=== PATIENT | female | born 1960 | race Caucasian/White ===

== ENCOUNTER 2016-05-06 09:54 | Inpatient (IN) ==
--- NOTE | 2016-05-06 08:33 | Discharge Summary ---
<Mallory Longoria - Last Filed: 05/06/16 12:35> - Discharge Medications Prescriptions: Ibuprofen [Motrin] 800 mg PO Q8HR #30 tablet Home Medications: Albuterol Sulfate [Albuterol Inhaler] 2 puff IH Q4HR PRN 05/06/16 [History] Aspirin Enteric Coated [Aspirin EC] 81 mg PO DAILY 05/06/16 [History] Aspirin Enteric Coated [Aspirin EC] 325 mg PO DAILY #21 tablet. 05/06/16 [Rx] Atenolol [Tenormin] 25 mg PO DAILY 05/06/16 [History] Budesonide/Formoterol 160/4.5 [Symbicort 160/4.5] 2 puff IH BIDR 05/06/16 [ History] Cholecalciferol (D-3) [Vitamin D] 1,000 unit PO DAILY 05/06/16 [History] Citalopram [CeleXA] 20 mg PO DAILY 05/06/16 [History] Furosemide [Lasix] 20 mg PO DAILY 05/06/16 [History] HYDROcodone/Acet 5/325 mg [[place] 5-325 mg] 1 tab PO Q8H PRN 05/06/16 [History] Lisinopril [Zestril] 20 mg PO DAILY 05/06/16 [History] Omeprazole [PriLOSEC] 40 mg PO DAILY 05/06/16 [History] OxyCODONE Immed Rel [Roxicodone 5 MG] 5 - 10 mg PO Q6HR PRN #40 tablet 05/06/16 [Rx] Psyllium Husk [Daily Fiber] 0.52 gm PO DAILY 05/06/16 [History] Ibuprofen [Motrin] 800 mg PO Q8HR #30 tablet 05/08/16 [Rx] Allergies/Adverse Reactions: Allergies No Known Allergies Allergy (Verified 05/06/16 13:28) Primary care physician: Lluvia Silver CNP - Patient Status Disposition: Home, Self-Care Condition: Good - Discharge Instructions Follow Up With: Lluvia Silver CNP [Primary Care Provider] - 05/12/16 1:00 pm Additional Instructions: Discharge Instructions: Total Knee Replacement Please call [facility] ([phone]), your Primary Care Physician, or report to the Emergency Room if you have any of the following symptoms: Nausea, vomiting, fever greater that 101.5, swelling, chest pain, shortness of breath, increased pain/redness/drainage/odor for your incision site, numbness/ tingling, or any other concerning symptoms. ACTIVITY:Weight-bearing as tolerated. You may progress off support (cruthches or walker) as tolerated. MEDICATIONS: Upon discharge resume your home medications. Take all the medications as prescribed. Take a stool softener if taking narcotic pain medications. Stool softeners are only effective if you drink enough fluids. Drink 6-8 glass of water or fluids a day, unless this is not allowed for another health problem. Despite using stool softeners, if you haven't had a bowel movement in 3 days, please switch to a gentle laxative. Gentle laxatives are sold over the counter. You should have a bowel movement within 24 hours, if not call the office. You will be discharged from the hospital with a prescription for pain medication. You are encouraged to decrease the use of narcotic pain medication as tolerated. Should you require a refill, please call the office. [facility] prescribes narcotic pain medication for only 4-6 weeks after surgery. If you require pain medication beyond this time periord, you may be referred to your Primary Care Physician or to the Pain Clinic for further evaluation. Plan ahead for refills on pain medication as many narcotics either need to be picked up at the office or mailed. It is best to call 48-72 hours in advance of needing a prescription refill so you don't run out of medication. To help control the post-operative pain, you may take NSAIDs (Aleve,Advil, Motrin, ibuprofen, naprosyn) or Tylenol as prescribed on the bottle in addition to the pain medication. ANTICOAGULATION (blood thinners): Continue your Aspirin, Lovenox or Coumadin as prescribed to help prevent a blood clot in the leg or in the lungs. As long as your incision remains dry and you tolerate the NSAIDs (Aleve, Advil, Motrin, ibuprofen, naprosyn), it is OK to use the NSAIDS while you are taking your anticoagulation medication. Should your incision start to drain, stop the NSAID and contact our office. Common symptoms of blood clot in the legs include: localized pain, swelling, calf tenderness, redness or discoloration of the skin. Blood clot in the lung symptoms include: shortness of breath, rapid pulse, sweating, and chest pain that worsens with deep breathing, coughing up blood, lightheadedness, feelings of anxiety. If you experience any of these symptoms notify your physician immediately, go to the emergency room, or if having trouble breathing, call 911. WOUND CARE: Leave the dressing on for 7 days. You may change the dressing if it becomes saturated greater than 50%. You can shower but not a tub bath or submerge your incision in water. Wash your hands with antibacterial soap, rinse and dry prior to any wound care. If you have keith the visiting nurse or rehab facility can remove the stapes 10-14 days after surgery [address] steri- strips across the wound. Leave the steri-strips in place until they fall off on their won. You may let water from the shower run on top of the steri-stirips. If you do not have a visiting nurse or rehab facility, you will need to return to the office at 10-14 days for the keith to be removed. FOLLOW-UP: Please follow up with your surgeon in the orthopedic clinic in 4 weeks from the day of surgery. If you have keith that need to be removed, you will need to come back to the office in 10-14 days from the day of surgery. - Hospital Course Hospital course: Ms. Duran is a 55 year old female - Time Spent with Patient Total time spent providing and/or coordinating discharge services: <Grant Kumar - Last Filed: 05/08/16 06:25> Date of Encounter: 05/08/16 Time of Encounter: 06:24 - Discharge Diagnosis (1) Arthritis of knee, right Priority: Primary Status: Acute (2) Hypertension Priority: Secondary Status: Chronic Qualifiers: Hypertension type: unspecified secondary hypertension Qualified Code(s): I15.9 - Secondary hypertension, unspecified; I15 - Secondary hypertension (3) COPD (chronic obstructive pulmonary disease) Priority: Secondary Status: Chronic Qualifiers: COPD type: unspecified COPD Qualified Code(s): J44.9 - Chronic obstructive pulmonary disease, unspecified (4) Obesity (BMI 35.0-39.9 without comorbidity) Priority: Secondary Status: Chronic Primary care physician: Lluvia Nadeem, FEED BLENDER - Patient Status Functional capacity at discharge: uses cane/walker Overall status at discharge: patient is progressing back to baseline - Hospital Course Hospital course: Ms. Duran is a 55 year old female The patient had an uneventful postoperative course. They received antibiotics and physical therapy and were discharged in stable condition. There will follow -up in the office in 2 weeks. Aspirin DVT prophylaxis - Time Spent with Patient Total time spent providing and/or coordinating discharge services:
[2016-05-06] MEDS ORDERED: CeFAZolin Pre 2,000 MG/100 ML 2,000 MG/100 ML BAG IVPB ONE (10:43)
[2016-05-06] MEDS ORDERED: Albuterol 2.5 MG/3 ML NEBULIZER IH ONE (10:43)
--- NOTE | 2016-05-06 11:04 | History & Physical Report ---
Date of Encounter: 05/06/16 Time of Encounter: 11:03 24 Hour HP Update - Instructions Instructions: If the History and Physical is less than 30 days old and was completed prior to A.M. admission and or procedure and has NOT been updated on calendar day of procedure please complete this update prior to performing procedure. - Update Patient reports changes in Medical Condition: No Changes in assessment/condition: No Changes in Medication: No Preop tests/diagnostics Reviewed: Yes Surgery Remains Indicated: Yes Consent for Planned Operative Procedure(s) Verified: Yes - Pre-Operative Checklist Preoperative Checklist Indicated: No Prophylactic Antibiotic Ordered: Yes Is VTE Prophylaxis Indicated?: Yes
[2016-05-06] MEDS ORDERED: Ringers Solution, Lactated 1,000 ML IVC SCH (11:15)
[2016-05-06] MEDS ORDERED: Famotidine 20 MG/2 ML VIAL IVP ONE (12:26)
--- NOTE | 2016-05-06 12:29 | Anesthesia Evaluation PreOp ---
Date of Encounter: 05/06/16 Time of Encounter: 12:30 - Past History Planned Operation: Rt TKR Cardiac History: HTN Pulmonary History: COPD PRESS TENDER STAR SIGNAL History: Denies Any Significant HX Other Medical History: GERD Anesthesia History: No Prior Anesthetic Complications : No Alcohol Use: none Drug use: none Medications and Allergies DiphenhydraMINE [Benadryl] 25 mg PO Q6HR PRN #20 capsule 06/07/15 [Rx] MethylPREDNISolone [Medrol] 4 mg PO TAPER #21 tablet 06/07/15 [Rx] HYDROcodone/Acet 5/325 mg [[place] 5-325 mg] 1 tab PO Q6HR PRN #15 tablet [Rx] Allergies No Known Allergies Allergy (Verified 03/25/16 09:35) - Meds/Allergy Pre-op Review Medications Reviewed: Yes Allergies Reviewed: Yes Beta Blockers on Current Med List: Yes (Took Atenolol today 0800) Anesthesia Results - Labs Laboratory Tests 05/05/16 05/05/16 11:20 11:20 Hgb 13.7 Hct 40.9 Plt Count 247 Sodium 138 Potassium 4.6 H BUN 17 Creatinine 0.85 Anesthesia Exam O2 Sat Height 1.6 m Height 1.6 m Weight 97.976 kg Weight 97.976 kg O2 Sat by Pulse Oximetry 96 Vital Signs Temp Pulse Resp BP Pulse Ox 97.8 F 66 18 148/78 96 05/06/16 10:40 05/06/16 10:40 05/06/16 10:40 05/06/16 10:40 05/06/16 10:40 Height: 5'3 Weight: 211 lbs NPO (# of Hours): MN Pain Scale: 0 - HEENT Pupil (Motor): Pupils equal, EOMI Mallampati: III Denture Type: Upper: Complete Oral Opening: Less than or equal to 3 - PRESS TENDER STAR SIGNAL LOC: Oriented PRESS TENDER STAR SIGNAL Motor: Normal RUE, Normal LUE, Normal RLE, Normal LLE, Normal Face PRESS TENDER STAR SIGNAL Sensory: Normal: RUE, LUE, RLE, LLE, Face - Cardiac Rhythm: Regular Murmur: None JVD: No Carotid Bruit: No - Pulmonary Breath Sounds: bilateral Clear Respiratory Effort: Symmetrical Anesthesia Assess/Plan ASA Score: 3 (COPD Htn Gerd Obese) Modified Denver Scale for Level of Consciousness: Cooperative, oriented, and tranquil Anesthetic Plan: General, Regional Monitoring Plan: Standard Monitors Recovery Plan: PACU (Discussed GA and RA, agrees to proceed)
[2016-05-06] MEDS ORDERED: *HR* FentaNYL (PF) 100 MCG/2 ML VIAL ONE (13:10)
[2016-05-06] MEDS ORDERED: *HR* Propofol 200 MG/20 ML VIAL IVP ONE (13:10)
[2016-05-06] MEDS ORDERED: *HR* Midazolam HCl 2 MG/2 ML VIAL ONE ×3 (13:10→14:34)
[2016-05-06] MEDS ORDERED: Tetracaine/PF 20 MG/2 ML AMPUL SPINA ONE (14:04)
[2016-05-06] MEDS ORDERED: ROPIVACAINE HCL/PF 0.5% 30 ML VIAL ONE (14:04)
[2016-05-06] MEDS ORDERED: Ondansetron 4 MG/2 ML VIAL ONE (14:53)
[2016-05-06] MEDS ORDERED: Dexamethasone 4 MG/ML VIAL ONE (14:53)
[2016-05-06] MEDS ORDERED: Ondansetron 4 MG/2 ML VIAL IVP PRN ×2 (14:54→17:10)
--- NOTE | 2016-05-06 15:03 | Anesthesia Procedures ---
Date of Encounter: 05/06/16 Time of Encounter: 12:00 Procedures: Anesthesia - Nerve Block Procedure Date: 05/06/16 Time: 14:25 Pre-op Diagnosis: Rt Knee OA Surgical Procedure: Rt Knee OA Checklist: Correct Patient Identifier Correct side: Right Blood Thinner: No Monitor Applied: EKG, BP, Pulse Oximetry Supplemental Oxygen via Nasal Cannula (L/min): 2 Sedation: Versed (mg): 6 Sedation: Fentanyl (mcg): 100 Indication: Post Op Analgesia Block Type: Femoral, Other (IPACK) Catheter placed: No Sterile Technique: Yes Ultrasound used: Yes Anatomy identified: Yes Visual spread of Local: Yes Neuro Stimulation: Yes Nerve Stimulator Range: >0.4 - 0.6 mA Blood on Needle Aspiration: No Smooth Injection of Local: Yes Pain with Injection of Local: No Prep: Chlorhexadine Local: 0.25% Bupivicaine w/Clonidine 20 mcg/cc, Tetracaine (40), Ropivacaine ( 0.5%) Volume (cc): 30 Number of Attempts: 1 Complications: None/effective block Vitals: Vital Signs/O2 Sat/Glucose, Most Current Pulse Resp BP Pulse Ox 05/06/16 14:06 71 16 160/87 97
--- NOTE | 2016-05-06 15:20 | Orthopedic Operative Note ---
Date of procedure: 05/06/16 Pre-op diagnosis: Right knee arthritis Post-op diagnosis: same Procedure: Procedure: Right Total knee replacement Estimated blood loss: 200 cc Hardware: Arthrex Femur: 4 Tibia: 3 PS insert: 16 Patella: 34 Exam Under anesthesia: Full flexion full extension no instability Procedural Notes: Grade 4 arthritic changes medial compartment patellofemoral joint. Operative procedure: The patient was brought to the operating room and placed on the operating room table. After general anesthesia was administered the operative knee was examined. Findings were noted in the exam under anesthesia. The operative extremity was prepped and draped in sterile surgical fashion. The patient received IV antibiotics prior to skin incision. A standard midline incision was made centered over the patella. The incision was made through the skin and subcutaneous tissue. A medial parapatellar tendon approach was performed. Care was taken to preserve tissue along the medial aspect of the patella. And to protect the patella tendon. The deep MCL was released off the medial tibia. The infra patella fat pad was excised. Knee was brought into flexion. It noted to have grade 4 arthritic changes medial compartment patellofemoral joint. The entry hole was made for the intramedullary femoral guide. The guide was seated in 6 degrees of valgus. Anterior cut was made followed by the distal cut. The ACL the PCL the medial and the lateral menisci were excised. The tibia was subluxed forward. The entry hole was made for the intramedullary tibial guide. Guide was seated to resect 2 mm off the more abnormal side. The knee was brought into flexion the distal femur was sized to a 4. The femoral guide was seated, the anterior cut was made followed by the posterior condylar cut, followed by the chamfer cuts. The finishing guide was seated the box cut was made and the lug holes were drilled. The tibia was sized to a 3, the tibial tray was seated and prepared with the large drill followed by the fin cutter. Trial reduction revealed full extension no varus valgus instability with the appropriate 16 PS Thalia. The patella was everted and cut was made at the level of the insertion of the quadriceps and patella tendon. The patella was sized 34 the guide was seated and the lug holes are drilled. Trial reduction revealed excellent patella tracking. All trial components were removed all bony surfaces were irrigated. The tibia was cemented first followed by the femur. The 16 PS Thalia was seated and the knee was brought into full extension. The patella was cemented and held in place with the patellar holding clamp. After the cement had hardened, the knee sat for 2 minutes with a Betadine saline solution. The knee was then irrigated out with 2 L of pulse irrigation. The extensor mechanism was closed with #2 FiberWire suture and #2 PDS suture. The subcutaneous tissue was then irrigated and closed deep with #1 PDS suture superficially with 0 PDS suture and skin was closed with skin keith. The patient was then placed in a sterile dressing and a postoperative brace extubated and transferred to recovery room in stable condition. Anesthesia: NIKITA Surgeon: Grant Kumar Developer Designer: Mallory Longoria Condition: stable Disposition: PACU
[2016-05-06 16:10] LABS: Hematocrit 35.6 % (35.3-44.9)
[2016-05-06] MEDS: *HR* HYDROmorphone (PF) 1 MG/ML SYRINGE IVP PRN ×4 (16:17→21:02)
[2016-05-06 16:25] LABS: Hemoglobin 12.1 g/dL (11.5-15.4)
[2016-05-06] MEDS ORDERED: Sennosides 8.6 MG TABLET PO PRN (17:10)
[2016-05-06] MEDS ORDERED: Naloxone 0.4 MG/ML INJ IVP PRN (17:10)
[2016-05-06] MEDS ORDERED: MOM Conc 10 ML UD.LIQ PO PRN (17:10)
[2016-05-06] MEDS ORDERED: *HR* OxyCODONE Immed Rel 5 MG TABLET PO PRN (17:10)
[2016-05-06] MEDS ORDERED: Acetaminophen 325 MG TABLET PO PRN (17:10)
[2016-05-06] MEDS ORDERED: Temazepam 15 MG CAPSULE PO PRN (17:10)
[2016-05-06] MEDS ORDERED: *HR* Enoxaparin 30 MG/0.3 ML SYRINGE SQ SCH (18:00)
--- NOTE | 2016-05-06 18:05 | Anesthesia Evaluation Post Op ---
Date of Encounter: 05/06/16 Time of Encounter: 18:00 - Vital Signs Vital Signs: Vital Signs/O2 Sat/Glucose, Most Current Temp Pulse Resp BP Pulse Ox 05/06/16 17:51 99 05/06/16 16:41 98.3 F 61 16 142/78 96 05/06/16 16:31 69 14 140/68 96 05/06/16 16:21 98.3 F 67 16 135/65 99 05/06/16 16:11 76 14 132/66 100 05/06/16 16:01 71 14 136/75 99 05/06/16 15:51 99.5 F 68 16 138/88 99 05/06/16 14:06 71 16 160/87 97 - Lungs Lungs: Clear Ascult./Percussion - Airway Airway: Non-obstructed - Cardiovascular Regular Rate - Mental Status Mental Status: Alert & Oriented, Answers Appropriately - Pain Pain Scale: 2 - Nausea Vomiting Nausea Vomiting: Not Present - Hydration Hydration: Ice chips - Discharge PostOp Status: Transfer Patient to floor
[2016-05-06] MEDS: *HR* OxyCODONE Immed Rel 5 MG TABLET PO PRN ×2 (18:41→23:47)
[2016-05-06] MEDS: ceFAZolin 2,000 MG in D5% in Water 100 ML IVPB SCH ×2 (18:41→23:47)
[2016-05-06] MEDS: *HR* Enoxaparin 30 MG/0.3 ML SYRINGE SQ SCH (18:42)
[2016-05-07] MEDS: *HR* HYDROmorphone (PF) 1 MG/ML SYRINGE IVP PRN ×4 (03:04→17:47)
[2016-05-07] MEDS: *HR* Enoxaparin 30 MG/0.3 ML SYRINGE SQ SCH ×2 (05:26→17:47)
[2016-05-07 05:28] LABS: Hematocrit 34.2 % (35.3-44.9); Hemoglobin 11.3 g/dL (11.5-15.4)
[2016-05-07 05:40] LABS: BUN/Creatinine Ratio 16 (6-26); Blood Urea Nitrogen 12 mg/dL (7-20); Calcium 8.7 mg/dL (8.6-10.8); Carbon Dioxide 25 mEq/L (19-29); Chloride 105 mEq/L (98-109); Glucose 113 mg/dL (70-99); Osmolality,Calculated 287 (280-300); Potassium 4.8 mEq/L (3.5-4.5); Sodium 138 mEq/L (136-145); eGFR For African Americans > 60 (> 60); eGFR For Non-African Americans > 60 (> 60)
--- NOTE | 2016-05-07 06:29 | Orthopedics Progress Note ---
Date of Encounter: 05/07/16 Time of Encounter: 06:28 - Assessment and Plan (1) Arthritis of knee, right Current Visit: Yes Status: Acute (2) Hypertension Current Visit: Yes Status: Chronic Qualifiers: Hypertension type: unspecified secondary hypertension Qualified Code(s): I15.9 - Secondary hypertension, unspecified; I15 - Secondary hypertension (3) COPD (chronic obstructive pulmonary disease) Current Visit: Yes Status: Chronic Qualifiers: COPD type: unspecified COPD Qualified Code(s): J44.9 - Chronic obstructive pulmonary disease, unspecified (4) Obesity (BMI 35.0-39.9 without comorbidity) Current Visit: Yes Status: Acute Subjective Interval history: Patient was seen this morning doing well without complaints. Afebrile vital signs stable. Operative extremity: Neurovascularly intact Dressing clean dry and intact Calves nontender Assessment and plan: Continue with postoperative care Hematocrit 34 Objective Vital signs: Vital Signs Temp Pulse Resp BP Pulse Ox 05/07/16 04:19 97.6 F 64 16 110/77 97 05/07/16 01:02 97.5 F L 58 16 127/84 95 05/06/16 20:10 97.6 F 60 14 140/88 95 05/06/16 19:10 63 14 136/15 92 L 05/06/16 18:10 97.3 F L 75 16 130/79 95 05/06/16 17:51 99 05/06/16 17:40 97.6 F 69 16 138/85 94 L 05/06/16 17:10 97.6 F 63 16 134/84 99 05/06/16 16:41 98.3 F 61 16 142/78 96 05/06/16 16:31 69 14 140/68 96 05/06/16 16:21 98.3 F 67 16 135/65 99 05/06/16 16:11 76 14 132/66 100 05/06/16 16:01 71 14 136/75 99 05/06/16 15:51 99.5 F 68 16 138/88 99 05/06/16 14:06 71 16 160/87 97 05/06/16 10:40 97.8 F 66 18 148/78 96 Intake and Output 05/06/16 05/06/16 05/07/16 15:59 23:59 07:59 Intake Total 1100 / 1100 100 / 100 Output Total 200 / 200 500 / 500 Balance 900 / 900 -400 / -400 Intake: IV Fluids 1100 / 1100 100 / 100 Lactated Ringers 1,000 ML 1000 / 1000 @ 25 mls/hr IVC .Q24H [facility] Rx#:[id number] Ancef 2,000 MG In 100 / 100 Dextrose 5% 100 ML @ 200 mls/hr IVPB Q8HR [facility] Rx#: [id number] Ancef Premix 2,000 MG/100 100 / 100 ML 2,000 mg In 100 ml @ 200 mls/hr IVPB PREOP ONE Rx#:[id number] Oral 0 / 0 Output: Urine 500 / 500 Estimated Blood Loss 200 / 200 Other: Weight 97.976 kg - Labs CBC & BMP: 05/07/16 05:15 05/07/16 05:15 Labs: Abnormal lab results Hgb 11.3 g/dL (11.5-15.4) L 05/07/16 05:15 Hct 34.2 % (35.3-44.9) L 05/07/16 05:15 Potassium 4.8 mEq/L (3.5-4.5) H 05/07/16 05:15 Glucose 113 mg/dL (70-99) H 05/07/16 05:15 - VTE Documentation of Mechanical Device: Venous foot pump, device Consult Discharge Plan - Plan Referrals: Lluvia Silver, PROCESS ENVIRONMENTAL TECHNICIAN [Primary Care Provider] -
[2016-05-07] MEDS: *HR* OxyCODONE Immed Rel 5 MG TABLET PO PRN ×3 (09:47→22:20)
[2016-05-07] MEDS ORDERED: Furosemide 20 MG/2 ML VIAL IVP ONE (18:14)
[2016-05-08] MEDS: *HR* HYDROmorphone (PF) 1 MG/ML SYRINGE IVP PRN ×2 (00:04→02:18)
[2016-05-08] MEDS ORDERED: Ketorolac 30 MG/ML VIAL IVP ONE (03:03)
[2016-05-08] MEDS ORDERED: Acetaminophen IV 1,000 MG/100 ML INFUS..BTL IVPB ONE (03:05)
[2016-05-08 05:02] LABS: Hemoglobin 10.7 g/dL (11.5-15.4)
[2016-05-08 05:19] LABS: BUN/Creatinine Ratio 20 (6-26); Blood Urea Nitrogen 16 mg/dL (7-20); Calcium 9.4 mg/dL (8.6-10.8); Carbon Dioxide 24 mEq/L (19-29); Chloride 104 mEq/L (98-109); Glucose 120 mg/dL (70-99); Osmolality,Calculated 286 (280-300); Potassium 4.2 mEq/L (3.5-4.5); Sodium 137 mEq/L (136-145); eGFR For African Americans > 60 (> 60); eGFR For Non-African Americans > 60 (> 60)
[2016-05-08] MEDS: *HR* OxyCODONE Immed Rel 5 MG TABLET PO PRN ×2 (05:30→09:42)
[2016-05-08] MEDS: *HR* Enoxaparin 30 MG/0.3 ML SYRINGE SQ SCH (05:31)
--- NOTE | 2016-05-08 06:26 | Orthopedics Progress Note ---
Date of Encounter: 05/08/16 Time of Encounter: 06:26 - Assessment and Plan (1) Arthritis of knee, right Current Visit: Yes Status: Acute (2) Hypertension Current Visit: Yes Status: Chronic Qualifiers: Hypertension type: unspecified secondary hypertension Qualified Code(s): I15.9 - Secondary hypertension, unspecified; I15 - Secondary hypertension (3) COPD (chronic obstructive pulmonary disease) Current Visit: Yes Status: Chronic Qualifiers: COPD type: unspecified COPD Qualified Code(s): J44.9 - Chronic obstructive pulmonary disease, unspecified (4) Obesity (BMI 35.0-39.9 without comorbidity) Current Visit: Yes Status: Chronic Subjective Interval history: Patient was seen this morning doing well without complaints. Afebrile vital signs stable. Operative extremity: Neurovascularly intact Dressing clean dry and intact Calves nontender Assessment and plan: Continue with postoperative care Discharge status today Objective Vital signs: Vital Signs Temp Pulse Resp BP Pulse Ox 05/08/16 00:04 98.0 F 81 16 130/80 99 05/07/16 20:09 97.9 F 82 16 98/67 94 L 05/07/16 14:21 98.1 F 76 16 118/76 93 L 05/07/16 11:10 97.9 F 74 16 115/79 92 L 05/07/16 09:20 97 05/07/16 07:01 97.9 F 68 16 114/76 96 Intake and Output 05/07/16 05/07/16 05/08/16 15:59 23:59 07:59 Intake Total 830 / 830 Output Total 500 / 500 600 / 600 Balance 330 / 330 -600 / -600 Intake: Oral 830 / 830 Output: Urine 500 / 500 600 / 600 Other: Meal Breakfast Percent of Meal Consumed 100% - Labs CBC & BMP: 05/08/16 04:34 05/08/16 04:34 Labs: Abnormal lab results Hgb 10.7 g/dL (11.5-15.4) L 05/08/16 04:34 Hct 32.0 % (35.3-44.9) L 05/08/16 04:34 Glucose 120 mg/dL (70-99) H 05/08/16 04:34 - VTE Documentation of Mechanical Device: Venous foot pump, device Consult Discharge Plan - Plan Additional Instructions: Discharge Instructions: Total Knee Replacement Please call [facility] ([phone]), your Primary Care Physician, or report to the Emergency Room if you have any of the following symptoms: Nausea, vomiting, fever greater that 101.5, swelling, chest pain, shortness of breath, increased pain/redness/drainage/odor for your incision site, numbness/ tingling, or any other concerning symptoms. ACTIVITY:Weight-bearing as tolerated. You may progress off support (cruthches or walker) as tolerated. MEDICATIONS: Upon discharge resume your home medications. Take all the medications as prescribed. Take a stool softener if taking narcotic pain medications. Stool softeners are only effective if you drink enough fluids. Drink 6-8 glass of water or fluids a day, unless this is not allowed for another health problem. Despite using stool softeners, if you haven't had a bowel movement in 3 days, please switch to a gentle laxative. Gentle laxatives are sold over the counter. You should have a bowel movement within 24 hours, if not call the office. You will be discharged from the hospital with a prescription for pain medication. You are encouraged to decrease the use of narcotic pain medication as tolerated. Should you require a refill, please call the office. [facility] prescribes narcotic pain medication for only 4-6 weeks after surgery. If you require pain medication beyond this time periord, you may be referred to your Primary Care Physician or to the Pain Clinic for further evaluation. Plan ahead for refills on pain medication as many narcotics either need to be picked up at the office or mailed. It is best to call 48-72 hours in advance of needing a prescription refill so you don't run out of medication. To help control the post-operative pain, you may take NSAIDs (Aleve,Advil, Motrin, ibuprofen, naprosyn) or Tylenol as prescribed on the bottle in addition to the pain medication. ANTICOAGULATION (blood thinners): Continue your Aspirin, Lovenox or Coumadin as prescribed to help prevent a blood clot in the leg or in the lungs. As long as your incision remains dry and you tolerate the NSAIDs (Aleve, Advil, Motrin, ibuprofen, naprosyn), it is OK to use the NSAIDS while you are taking your anticoagulation medication. Should your incision start to drain, stop the NSAID and contact our office. Common symptoms of blood clot in the legs include: localized pain, swelling, calf tenderness, redness or discoloration of the skin. Blood clot in the lung symptoms include: shortness of breath, rapid pulse, sweating, and chest pain that worsens with deep breathing, coughing up blood, lightheadedness, feelings of anxiety. If you experience any of these symptoms notify your physician immediately, go to the emergency room, or if having trouble breathing, call 911. WOUND CARE: Leave the dressing on for 7 days. You may change the dressing if it becomes saturated greater than 50%. You can shower but not a tub bath or submerge your incision in water. Wash your hands with antibacterial soap, rinse and dry prior to any wound care. If you have keith the visiting nurse or rehab facility can remove the stapes 10-14 [address] surgery [address] steri- strips across the wound. Leave the steri-strips in place until they fall off on their won. You may let water from the shower run on top of the steri-stirips. If you do not have a visiting nurse or rehab facility, you will need to return to the office at 10-14 days for the keith to be removed. FOLLOW-UP: Please follow up with your surgeon in the orthopedic clinic in 4 weeks from the day of surgery. If you have keith that need to be removed, you will need to come back to the office in 10-14 days from the day of surgery. Referrals: Lluvia Silver CNP [Primary Care Provider] - 05/12/16 1:00 pm Prescriptions: Ibuprofen [Motrin] 800 mg PO Q8HR #30 tablet
[2016-05-08 10:52] VITALS: BP 144/84
== END 2016-05-08 12:45 | disposition home or self-care (01) | DRG 470 ==
LOC: SAMDAY 09:54 → 3NENU 17:03
PROVIDERS: ADMIT Orthopaedic Surgery; ATTEND Orthopaedic Surgery

== ENCOUNTER 2016-06-04 16:03 | Inpatient (IN) ==
--- NOTE | 2016-06-04 16:44 | Emergency Department Note ---
Disposition Clinical Impression: Pulmonary embolism Qualifiers: Pulmonary embolism type: other Chronicity: acute Acute cor pulmonale presence: without acute cor pulmonale Qualified Code(s): I26.99 - Other pulmonary embolism without acute cor pulmonale Disposition: Admitted As Inpatient Condition: Good Referrals: NO,PCP [Non-Partnered Physician] - Forms: ED Satisfaction Letter SOB HPI - General Chief Complaint: ED Shortness of Breath/Dyspnea Stated Complaint: SOB / CP Time Seen by Provider: 06/04/16 16:18 Source: patient, family Limitations: no limitations - History of Present Illness 55-year-old female status post 1 month right knee replacement presents to ER with shortness of breath. 2 days ago patient had office visit who noticed right lower external swelling and patient underwent ultrasound of right lower extremity and was found to have DVT in the popliteal vein. She was started on Lovenox and heparin. Patient states that 2 days ago she also started having chest pain that was located bilateral upper chest without radiation, nausea, diaphoresis, vomiting. Chest pain does not worsen with inspiration. She states she also had shortness of breath starting early this morning with cough that was productive. Patient was told to come to the ER by physician due to possible pulmonary embolism. ROS: Constitutional: Denies fevers chills Head: denies headache, dizziness Eyes: denies blurry vision Heart: Admits chest pain Lungs: Admits to shortness of breath, cough Abdomen: Denies abdominal pain, nausea, vomiting : Denies dysuria, diarrhea, constipation Extremeties: Reports right lower extremity pain and bilateral extremity swelling. Denies left lower extremity swelling, right knee pain s/p r. knee replacement Psych: denies anxiety and depression Neuro: denies numbness and tingling. - Related Data Home Medications Medication Instructions Recorded Confirmed Albuterol Sulfate [Albuterol 2 puff IH Q4HR PRN 05/06/16 06/04/16 Inhaler] Atenolol [Tenormin] 25 mg PO DAILY 05/06/16 06/04/16 Budesonide/Formoterol 160/4.5 2 puff IH BIDR 05/06/16 06/04/16 [Symbicort 160/4.5] Cholecalciferol (D-3) [Vitamin D] 5,000 unit PO DAILY 05/06/16 06/04/16 Citalopram [CeleXA] 20 mg PO DAILY 05/06/16 06/04/16 Furosemide [Lasix] 20 mg PO DAILY 05/06/16 06/04/16 Lisinopril [Zestril] 20 mg PO DAILY 05/06/16 06/04/16 Psyllium Husk [Daily Fiber] 0.52 gm PO DAILY 05/06/16 06/04/16 Enoxaparin [Lovenox] 100 mg SQ Q12H 06/04/16 06/04/16 Ranitidine HCl [Acid Media Producer] 150 mg PO BID PRN 06/04/16 06/04/16 Warfarin [Coumadin] 5 mg PO DAILY 06/04/16 06/04/16 Previous Rx's Medication Instructions Recorded Aspirin Enteric Coated [Aspirin EC] 325 mg PO DAILY #21 tablet. 05/06/16 OxyCODONE Immed Rel [Roxicodone 5 5 - 10 mg PO Q6HR PRN #40 tablet 05/06/16 MG] Ibuprofen [Motrin] 800 mg PO Q8HR #30 tablet 05/08/16 Allergies Allergy/AdvReac Type Severity Reaction Status Date / Time No Known Allergies Allergy Verified 05/06/16 13:28 Past Medical History - Past Medical History Medical history: Reports: arthritis, COPD, DVT, GERD, hypertension Psychiatric history: Reports: anxiety, depression - Social History Smoking Status: Never smoker Smokeless Tobacco Status: No Alcohol use: Reports: none Drug use: Reports: none Physical Exam - General Limitations: no limitations General appearance: alert - Head Head exam: atraumatic, normocephalic - Eye Eye exam: Present: normal appearance, PERRL, EOMI - Neck Neck exam: Present: normal inspection, full ROM - Chest Chest inspection: Present: normal inspection, symmetric chest wall rise - Respiratory Respiratory exam: Present: normal lung sounds bilaterally. Absent: respiratory distress, accessory muscle use - Cardiovascular Cardiovascular exam: Present: regular rate, normal rhythm. Absent: JVD - Abdominal Exam Abdominal exam: Present: soft, Non-Tender. Absent: distention - Extremities Exam Extremities exam: Present: tenderness (right calf ), pedal edema (b/l 1+), other (right knee incision intact with keith, no discharge, erythema. ) - Neurological Exam Neurological exam: Present: alert, oriented X3 - Psychiatric Psychiatric exam: Present: normal affect, normal mood - Skin Skin exam: Present: warm, dry, intact Course Course Narrative: CTA was obtained which showed bilateral upper and lower lobe PE. Patient is already being treated with Lovenox and warfarin. Due to concern for worsening respiratory status she will be admitted for observation. If patient keeps having shower emboli and her long she may need a IVC filter. Will order Pt/INR, CBC. 7:26PM - Reevaluation(s) Reevaluation #1: Dr. Mcfarland accepted patient for admission. Time: 20:09 Vital Signs Temperature 97.9 F 06/04/16 16:21 Pulse Rate 58 06/04/16 16:21 Respiratory Rate 16 06/04/16 16:21 Blood Pressure 163/95 06/04/16 16:21 O2 Sat by Pulse Oximetry 96 06/04/16 16:21 Temperature 97.9 F 06/04/16 16:21 Pulse Rate 59 06/04/16 17:31 Respiratory Rate 16 06/04/16 17:31 Blood Pressure 150/79 06/04/16 17:31 O2 Sat by Pulse Oximetry 97 06/04/16 17:31 Oxygen Delivery Oxygen Delivery Room Air Shortness of Breath/Dyspnea - [facility] Narrative Medical decision making narrative: Patient presented with chief complaint shortness of breath and was found to have DVT right lower extremity 2 days ago. CTA shows bilateral upper and lower lobe shower emboli. Due to concern of worsening respiratory status we will admit patient for observation. - Differential Diagnosis Likely: pulmonary embolism - Medical Records Medical records reviewed: Yes I reviewed the patient's medical records. - Lab Data Lab results reviewed: Yes I reviewed the patient's lab results. Result diagrams: 06/04/16 18:02 06/04/16 18:02 Lab Results 06/04/16 06/04/16 06/04/16 Range/Units 18:02 18:02 18:02 WBC 6.4 (4.3-11.1) K/mcL RBC 3.00 L (3.82-4.97) M/mcL Hgb 9.7 L (11.5-15.4) g/dL Hct 29.2 L (35.3-44.9) % MCV 97.3 (83.0-100.0) fL MCH 32.3 (28.0-33.3) pg MCHC 33.2 (31.6-35.5) g/dL RDW 14.1 (11.5-14.5) % Plt Count 234 (140-400) K/mcL MPV 9.4 (9.4-12.4) fL Immature Gran % 0.5 (0-4) % Seg Neutrophils % 45.0 % Lymphocytes % 43.5 % Monocytes % 8.5 % Eosinophils % 2.0 % Basophils % 0.5 % Neutrophils # 2.9 (1.6-8.9) K/mcL Lymphocytes # 2.8 (0.6-4.6) K/mcL Monocytes # 0.5 (0.0-1.3) K/mcL Eosinophils # 0.1 (0.0-0.6) K/mcL Basophils # 0.0 (0.0-0.2) K/mcL PT 16.8 H (9.4-12.1) Seconds INR 1.5 Sodium 142 (136-145) mEq/L Potassium 3.4 L (3.5-4.5) mEq/L Chloride 109 (98-109) mEq/L Carbon Dioxide 27 (19-29) mEq/L BUN 10 (7-20) mg/dL Creatinine 0.83 (0.57-1.11) mg/dL Est GFR ( Amer) > 60 (> 60) Est GFR (Non-Af Amer) > 60 (> 60) BUN/Creatinine Ratio 12 (6-26) Glucose 78 (70-99) mg/dL Calculated Osmolality 292 (280-300) Calcium 9.1 (8.6-10.8) mg/dL - EKG Data EKG results narrative: Junctional rhythm, no acute ST-T wave abnormalities. Now in sinus rhythm.
--- NOTE | 2016-06-04 17:25 | Emergency Department Note ---
START Narrative - START START: I examined this patient and my medical decision-making was reviewed with the CUFF RUNNER/PA/Advanced Practice Nurse/Resident Physician. I agree with the documented findings, disposition and treatment plan as described except to the extent set forth below. Patient does have a DVT and has been on Lovenox and warfarin for the last 2 days since Wednesday and she presents now with shortness of breath which started yesterday. Also has chest pain. Symptoms are concerning for pulmonary embolism and if this is a large saddle embolus this may change her management so the patient will have imaging as well as EKG and chest x-ray. 1725 I did review the patient's EKG showing junctional rhythm with a rate of [address] and T-wave changes
[2016-06-04 18:24] LABS: BUN/Creatinine Ratio 12 (6-26); Blood Urea Nitrogen 10 mg/dL (7-20); Calcium 9.1 mg/dL (8.6-10.8); Carbon Dioxide 27 mEq/L (19-29); Chloride 109 mEq/L (98-109); Glucose 78 mg/dL (70-99); Osmolality,Calculated 292 (280-300); Potassium 3.4 mEq/L (3.5-4.5); Sodium 142 mEq/L (136-145); eGFR For African Americans > 60 (> 60); eGFR For Non-African Americans > 60 (> 60)
[2016-06-04 19:32] LABS: Basophils % 0.5 %; Eosinophils # 0.1 K/mcL (0.0-0.6); Hematocrit 29.2 % (35.3-44.9); Hemoglobin 9.7 g/dL (11.5-15.4); Immature Granulocytes % 0.5 % (0-4); Lymphocytes # 2.8 K/mcL (0.6-4.6); Lymphocytes % 43.5 %; Mean Corpuscular HGB Conc 33.2 g/dL (31.6-35.5); Mean Corpuscular Hemoglobin 32.3 pg (28.0-33.3); Mean Corpuscular Volume 97.3 fL (83.0-100.0); Mean Platelet Volume 9.4 fL (9.4-12.4); Monocytes # 0.5 K/mcL (0.0-1.3); Monocytes % 8.5 %; Neutrophils # 2.9 K/mcL (1.6-8.9); Platelet Count 234 K/mcL (140-400); Red Cell Distribution Width 14.1 % (11.5-14.5)
[2016-06-04 19:37] LABS: INR 1.5; Prothrombin Time 16.8 Seconds (9.4-12.1)
[2016-06-04] MEDS ORDERED: Naloxone 0.4 MG/ML INJ IVP PRN (20:47)
--- NOTE | 2016-06-04 21:08 | Internal Med History&Physical ---
<Karen Dewitt M - Last Filed: 06/04/16 22:01> Date of Encounter: 06/04/16 Time of Encounter: 20:54 Assessment and Plan (1) Pulmonary embolism Current visit: Yes Status: Acute Patient with shortness of breath and chest pain for the last 2-3 days, worsened last night. She was diagnosed with DVT on Wednesday and started weight based Lovenox and coumadin yesterday. CTA shows acute pulmonary embolism in Bilateral lower lobes and to a lesser extent bilateral upper lobes. 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 Check coags in the morning. Echocardiogram to assess for right heart strain. Qualifiers: Pulmonary embolism type: other Chronicity: acute Acute cor pulmonale presence: without acute cor pulmonale Qualified Code(s): I26.99 - Other pulmonary embolism without acute cor pulmonale (2) DVT (deep venous thrombosis) Current visit: Yes Status: Acute Patient was diagnosed with RLE DVT on Wednesday and was started on weight based lovenox and coumadin. INR not yet therapeutic at 1.5. 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 Qualifiers: DVT location: lower extremity Affected thrombotic vein of extremity: popliteal Laterality: right Chronicity: acute Qualified Code(s): I82.431 - Acute embolism and thrombosis of right popliteal vein (3) Hypertension Current visit: No Status: Chronic Continue home doses of atenolol, lasix and lisinopril. Qualifiers: Hypertension type: essential hypertension Qualified Code(s): I10 - Essential (primary) hypertension (4) COPD (chronic obstructive pulmonary disease) Current visit: No Status: Chronic Continue home doses of budesonide/formotorol and albuterol. Qualifiers: COPD type: unspecified COPD Qualified Code(s): J44.9 - Chronic obstructive pulmonary disease, unspecified (5) DVT prophylaxis Current visit: Yes Status: Acute Patient with DVTs in RLE. sequential compression device on left leg only. Patient on weight based lovenox and coumadin for current DVT/PE Internal Medicine - H&P: HPI Chief complaint: shortness of breath and chest pain Admitted From: Emergency Dept Plans for Post Hospital Care: Home History of present illness: Ms. Duran is a 55 year old female with GERD, hypertension, COPD and recent diagnosis of DVT s/p right knee replacement 1 month ago. Patient reports both her legs have been swollen since her surgery 1 month ago. She had follow up with her surgeon 2 days ago, and they ordered BLE dopplers for her swelling, she was found to have DVTs in her right calf and behind her knee. She started weight based lovenox and coumadin yesterday and has had 3 doses of lovenox so far. She reports she had chest pain and shortness of breath that started 2 or 3 days ago as well. She described the chest pain as constant aching with intermittant sharpness. She reports the pain and shortness of breath worsened last night which is what prompted her to come to the ED today. Evaluation in the Emergency department included a CTA which revealed acute pulmonary embolism involving the bilateral lower lobes and to a lesser extent the bilateral upper lobes, with segmental extension, no convincing evidence of right heart strain at this time, small peripheral area of airspace disease at the right costophrenic angle, could represent atelectasis or evolving infarct. PT was 16.8, INR was 1.5. She was mildly hypokalemic with potassium of 3.4. On exam, patient is alert and oriented, satting 96% on room air. Heart has regular rate and lungs are clear bilaterally to auscultation. BLE are mildly edematous. Right knee surgical incision is clean, and healing well, without any erythema. Past Med Surg Social Fam HX - Past Medical History Medical history: arthritis, COPD, DVT, GERD, hypertension, pulmonary embolus Psychiatric history: anxiety, depression - Past Surgical History Surgical History: knee replacement - Social History Smoking Status: Never smoker Smokeless Tobacco Status: No Alcohol use: none Drug use: none - Family History Mother Living Status: Still Living Hx Family Cardiac Disorders: Yes (GA) Hx Family Respiratory Disorders: Yes Hx Family Cancer: Yes (Breast CA) Hx Family GI Disorders: No Hx Family Endocrine Disorder: No Hx Family Neuromuscular Disorders: No Hx Family Neurologic Disorders: No Hx Family HEENT Disorders: No Hx Family Autoimmune Disorders: No Father Living Status: Still Living Hx Family Cardiac Disorders: Yes Hx Family Endocrine Disorder: Yes (diabetes) Internal Medicine - H&P: Meds Albuterol Sulfate [Albuterol Inhaler] 2 puff IH Q4HR PRN 05/06/16 [History] Aspirin Enteric Coated [Aspirin EC] 325 mg PO DAILY #21 tablet. 05/06/16 [Rx] Atenolol [Tenormin] 25 mg PO DAILY 05/06/16 [History] Budesonide/Formoterol 160/4.5 [Symbicort 160/4.5] 2 puff IH BIDR 05/06/16 [ History] Cholecalciferol (D-3) [Vitamin D] 5,000 unit PO DAILY 05/06/16 [History] Citalopram [CeleXA] 20 mg PO DAILY 05/06/16 [History] Furosemide [Lasix] 20 mg PO DAILY 05/06/16 [History] Lisinopril [Zestril] 20 mg PO DAILY 05/06/16 [History] OxyCODONE Immed Rel [Roxicodone 5 MG] 5 - 10 mg PO Q6HR PRN #40 tablet 05/06/16 [Rx] Psyllium Husk [Daily Fiber] 0.52 gm PO DAILY 05/06/16 [History] Ibuprofen [Motrin] 800 mg PO Q8HR #30 tablet 05/08/16 [Rx] Enoxaparin [Lovenox] 100 mg SQ Q12H 06/04/16 [History] Ranitidine HCl [Acid Supercalender Operator Helper] 150 mg PO BID PRN 06/04/16 [History] Warfarin [Coumadin] 5 mg PO DAILY 06/04/16 [History] Allergies No Known Allergies Allergy (Verified 05/06/16 13:28) All Systems PM: A 10-system review of systems was performed and is negative for pertinent findings except as documented above in the HPI. - Constitutional Constitutional: no chills, no fever(s), no night sweats - EENT Eyes: no change in vision, no discharge, no pain, no photophobia Ears: no ear discharge, no ear pain, no tinnitus Nose, mouth and throat: no dysphagia, no nasal discharge, no neck pain, no sore throat - Cardiovascular Cardiovascular ROS IM: chest pain, dyspnea, dyspnea on exertion, lightheadedness , no diaphoresis, no palpitations, no syncope - Respiratory Respiratory: cough, dyspnea, dyspnea on exertion, no wheezing, no excessive phlegm production - Gastrointestinal Gastrointestinal: no abdominal pain, no diarrhea, no hematemesis, no hematochezia, no melena, no nausea, no vomiting - Genitourinary Genitourinary: no change in urinary stream, no dysuria, no flank pain, no hematuria - Musculoskeletal Musculoskeletal ROS IM: no numbness, no tingling - Integumentary Integumentary IM: no rash, no unusual bruising - Neurological Neurological ROS: headache(s), no confusion, no convulsions, no focal weakness, no numbness, no tingling, no tremor(s) - Hematologic/Lymphatic Hematologic/Lymphatic: no easy bruising - Constitutional Vitals: Temp Pulse Resp BP Pulse Ox 97.9 F 58 18 156/75 97 06/04/16 16:21 06/04/16 20:15 06/04/16 20:38 06/04/16 20:38 06/04/16 20:15 General appearance: Present: A&O X 3, pleasant, no acute distress - Head Head exam: Present: atraumatic, normocephalic - Eye Eye exam: Present: PERRL, conjuntiva pink, sclera anicteric Pupils: Present: PERRL - Neck Neck exam general surgery: Present: supple, trachea midline. Absent: lymphadenopathy - Respiratory Respiratory exam: Present: CTAB. Absent: accessory muscle use, rales, rhonchi, wheezes - Cardiovascular Cardiovascular exam: Present: RRR, +S1, +S2. Absent: diastolic murmur, gallop, rubs, systolic murmur - GI/Abdominal GI/Abdominal exam: Present: normal bowel sounds, soft, no peritoneal signs. Absent: distended, tenderness - Extremities Exam Extremities exam: Present: pedal edema (BLE +2 edmea), warm, radial pulses palpable and symetrical. Absent: calf tenderness, cyanotic - Neurological Exam Neurological exam: Present: CN II-XII intact, oriented X3, no focal deficits. Absent: pronater drift, facial droop, speech deficit - Skin Skin exam: Present: dry, intact Internal Med - H&P Results - Labs CBC & Chem 7: 06/04/16 18:02 06/04/16 18:02 Labs: All Lab Results (24 Hours) 06/04/16 06/04/16 06/04/16 Range/Units 18:02 18:02 18:02 WBC 6.4 (4.3-11.1) K/mcL RBC 3.00 L (3.82-4.97) M/mcL Hgb 9.7 L (11.5-15.4) g/dL Hct 29.2 L (35.3-44.9) % MCV 97.3 (83.0-100.0) fL MCH 32.3 (28.0-33.3) pg MCHC 33.2 (31.6-35.5) g/dL RDW 14.1 (11.5-14.5) % Plt Count 234 (140-400) K/mcL MPV 9.4 (9.4-12.4) fL Immature Gran % 0.5 (0-4) % Seg Neutrophils % 45.0 % Lymphocytes % 43.5 % Monocytes % 8.5 % Eosinophils % 2.0 % Basophils % 0.5 % Neutrophils # 2.9 (1.6-8.9) K/mcL Lymphocytes # 2.8 (0.6-4.6) K/mcL Monocytes # 0.5 (0.0-1.3) K/mcL Eosinophils # 0.1 (0.0-0.6) K/mcL Basophils # 0.0 (0.0-0.2) K/mcL PT 16.8 H (9.4-12.1) Seconds INR 1.5 Sodium 142 (136-145) mEq/L Potassium 3.4 L (3.5-4.5) mEq/L Chloride 109 (98-109) mEq/L Carbon Dioxide 27 (19-29) mEq/L BUN 10 (7-20) mg/dL Creatinine 0.83 (0.57-1.11) mg/dL Est GFR ( Amer) > 60 (> 60) Est GFR (Non-Af Amer) > 60 (> 60) BUN/Creatinine Ratio 12 (6-26) Glucose 78 (70-99) mg/dL Calculated Osmolality 292 (280-300) Calcium 9.1 (8.6-10.8) mg/dL - Diagnostic Studies Chest x-ray Additional comments: Chest X-Ray 06/04/16 17:16 IMPRESSION: No acute process. D/ / Shan Love MD / Shan Love MD Interpreting Provider: Shan Love MD CT scan - chest Additional comments: Chest CTA 06/04/16 17:16 IMPRESSION: 1. Acute pulmonary embolism involving the bilateral lower lobes and to a lesser extent the bilateral upper lobes, with segmental extension. There is no convincing evidence of right heart strain at this time. 2. Small peripheral area of airspace disease at the right costophrenic angle, could represent atelectasis or evolving infarct. Findings were called to Dr. Cuenca of the Emergency Department, at 7:20 p.m., 06/04/2016. D/ / 06/04/2016 19:29:24 Austin Abbasi MD / isidra Interpreting Provider: Austin Abbasi MD <Monica Mcguire - Last Filed: 06/04/16 23:52> Date of Encounter: 06/04/16 Internal Medicine - H&P: HPI History of present illness: Ms. Duran is a 55 year old female All Systems PM: A 10-system review of systems was performed and is negative for pertinent findings except as documented above in the HPI. - Constitutional Vitals: Temp Pulse Resp BP Pulse Ox 97.7 F 54 16 152/94 96 06/04/16 21:35 06/04/16 21:35 06/04/16 23:05 06/04/16 21:35 06/04/16 23:05 Internal Med - H&P Results - Labs CBC & Chem 7: 06/04/16 18:02 06/04/16 18:02 - Attending Attestation Patient seen and examined, agree with assessment and plan by MERLYN Dewitt. Patient with DVT and PE s/p right TKA one month ago. Her chest pain and shortness of breath developed several days ago, she began lovenox 1mg/kg SQ yesterday and then yesterday evening the shortness of breath and chest pain worsened. I do not feel the worsening of symptoms necessarily suggests failure of lovenox, but likely represents progression of small lung infarctions in setting of multiple PEs. No evidence of right heart strain on CT, will obtain echo in AM for better evaluation of cardiac function. Continue lovenox SQ 1mg/ kg and continue coumadin.
[2016-06-04] MEDS: *HR* OxyCODONE Immed Rel 5 MG TABLET PO PRN (22:01)
[2016-06-04] MEDS ORDERED: *HR* Enoxaparin 100 MG/ML SYRINGE SQ ONE (22:30)
[2016-06-04] MEDS: Acetaminophen 325 MG TABLET PO PRN (22:34)
[2016-06-04] MEDS: Budesonide/Formoterol 160/4.5 MDI IH SCH (23:04)
[2016-06-05] MEDS: Acetaminophen 325 MG TABLET PO PRN (03:28)
[2016-06-05 05:51] LABS: Basophils % 0.7 %; Eosinophils # 0.2 K/mcL (0.0-0.6); Eosinophils % 3.3 %; Hematocrit 28.4 % (35.3-44.9); Hemoglobin 9.3 g/dL (11.5-15.4); Immature Granulocytes % 0.4 % (0-4); Lymphocytes # 2.7 K/mcL (0.6-4.6); Lymphocytes % 49.6 %; Mean Corpuscular HGB Conc 32.7 g/dL (31.6-35.5); Mean Corpuscular Hemoglobin 31.8 pg (28.0-33.3); Mean Corpuscular Volume 97.3 fL (83.0-100.0); Mean Platelet Volume 9.3 fL (9.4-12.4); Monocytes # 0.5 K/mcL (0.0-1.3); Platelet Count 233 K/mcL (140-400); Red Blood Count 2.92 M/mcL (3.82-4.97); Red Cell Distribution Width 14.2 % (11.5-14.5)
[2016-06-05 05:55] LABS: INR 1.9; Prothrombin Time 20.8 Seconds (9.4-12.1)
[2016-06-05 05:57] LABS: Activated Partial Thrombo Time 53.4 Seconds (26.0-36.0)
[2016-06-05 06:07] LABS: BUN/Creatinine Ratio 13 (6-26); Blood Urea Nitrogen 10 mg/dL (7-20); Calcium 9.1 mg/dL (8.6-10.8); Carbon Dioxide 25 mEq/L (19-29); Chloride 109 mEq/L (98-109); Glucose 89 mg/dL (70-99); Osmolality,Calculated 295 (280-300); Potassium 3.1 mEq/L (3.5-4.5); Sodium 143 mEq/L (136-145); eGFR For African Americans > 60 (> 60); eGFR For Non-African Americans > 60 (> 60)
[2016-06-05] MEDS: *HR* OxyCODONE Immed Rel 5 MG TABLET PO PRN ×3 (06:36→21:39)
[2016-06-05] MEDS: Budesonide/Formoterol 160/4.5 MDI IH SCH ×2 (08:05→22:30)
[2016-06-05] MEDS: Lisinopril 20 MG TABLET PO SCH (08:10)
[2016-06-05] MEDS: Furosemide 20 MG TABLET PO SCH (08:10)
[2016-06-05] MEDS ORDERED: Aspirin Enteric Coated 325 MG Tablet PO SCH (09:00)
[2016-06-05] MEDS ORDERED: *HR* Warfarin 5 MG TABLET PO SCH (09:00)
[2016-06-05] MEDS: *HR* Enoxaparin 100 MG/ML SYRINGE SQ SCH ×2 (10:11→18:01)
--- NOTE | 2016-06-05 10:38 | ECHO - Doppler Report ---
Echocardiogram Name: Nidhi Duran Date of Study: 06/05/2016 Date: 1960 Ht: 63.0 in Medical Record#: [id number] Age: 55 Wt: 214.0 lb Gender: Female BSA: 1.99 Order #: [id number] Location: [facility] Room #: [id number] Reading Physician: Edward Pompa DO, [facility] Singh Business Services Coordinator: Andrey Urbina RN Ordering Physician: Karen Dewitt CNP Primary Physician: Lluvia Silver CNP Indications: Pulmonary embolus Impressions: LVEF 60-65%. Normal LV chamber size, wall thickness and function. Normal left ventricular diastolic function. Normal right ventricular structure and function. Mild tricuspid regurgitation. Moderate pulmonary hypertension. Estimated RVSP is 53 mmHg. Left Ventricular Wall Motion: Rest Echo Findings All wall segments showed normal motion. Findings: Study Quality * Technically adequate exam. ECG Findings * Normal sinus rhythm. Left Ventricle * LVEF 60-65%. * Normal LV chamber size, wall thickness and function. * Normal left ventricular diastolic function. Right Ventricle * Normal right ventricular structure and function. Left Atrium * Mildly dilated left atrium. Right Atrium * Mildly dilated right atrium. Interatrial Septum * Interatrial septum not well evaluated. Aortic Valve * Trileaflet aortic valve with normal function. * No aortic regurgitation. * No aortic stenosis. Mitral Valve * Mildly thickened mitral valve leaflets. * Trace mitral regurgitation. * No mitral stenosis. Tricuspid Valve * Normal tricuspid valve structure. * Mild tricuspid regurgitation. * Moderate pulmonary hypertension. * Estimated RVSP is 53 mmHg. * Estimated RA pressure is 5 mmHg. Pulmonic Valve * Pulmonic valve is not well visualized. * No pulmonic regurgitation. Aorta * Normally sized aortic root. Pericardium * The pericardium appears normal. IVC * Normal IVC dimensions and inspiratory collapse. Pulmonary Artery * Normal visualized portions of the main pulmonary artery. History Hypertension Hypercholesteremia Family History of CAD 06/29/2013 a Previous Echo was performed. Measurements: BP: 118/ 73 2D Normal Values RVIDd: 3.00 cm <2.7 cm IVSd: 1.10 cm 0.6 - 1.0 cm LVIDd: 4.30 cm 3.7 - 5.6 cm LVPWd: 1.10 cm 0.6 - 1.1 cm LVIDs: 2.50 cm 1.5 - 3.6 cm LA: 3.70 cm 2.0 - 4.0cm %FS: 41.90 cm >25 % LVOT Diam: 2.00 cm LA volume: 63 Mitral Valve Peak E:1.09 m/sec Peak A:.46 m/sec E/A Ratio:2.4 Peak E' Lat Anders:9.75 cm/s Peak E' Med Anders:7.9 cm/s E/E' Lat Ratio:11.2 E/E' Med Ratio:13.8 Tricuspid Valve TV Regurg Peak Grad: 48.00mmHg TV Regurg Peak Anders: 3.46m/sec Updated by Edward Pompa DO, PRICILLA, ERIKA, NATHANIEL on 06/05/2016 10:32:38 AM electronically signed on 06/05/2016 10:34:55 AM with status of Final Wall Motion Rodriguez: 1=Normal, 2=Hypokinesis, 3=Akinesis, 4=Dyskinesis, 5=Aneurysmal, 6=Hyperkinetic, X=Not Visualized (Blank)=Missing
[2016-06-05] MEDS ORDERED: Ibuprofen 600 MG TABLET PO ONE (12:01)
--- NOTE | 2016-06-05 12:02 | Internal Med Progress Note ---
Date of Encounter: 06/05/16 Time of Encounter: 12:01 - Assessment and plan (1) Pulmonary embolism Current Visit: Yes Status: Acute Assessment and plan: Patient with acute , provoked (post-knee surgery), bilateral PE without hemodynamic compromise or right heart strain Troponin 0, BNP slightly elevated 465, patient is not hypoxic on room air Evidence of DVT on Doppler USS, patient on Lovenox and Coumadin for one day at home prior to admission D/C ASA 325mg daily (prior DVT prophylaxis post-op) ECHO noted for LVEF 60-65%, Normal LV size, wall thickness and function, Normal RV structure and function, mild TR and moderate Pul HTN, no WMA Continue current anticoagulation Will d/c lovenox once INR is therapeutic Patient denies family hx of thrombophilias and she has an appointment with hematology in a week Continue O2 sat monitoring No current indication for thrombolysis or thrombectomy Qualifiers: Pulmonary embolism type: other Chronicity: acute Acute cor pulmonale presence: without acute cor pulmonale Qualified Code(s): I26.99 - Other pulmonary embolism without acute cor pulmonale (2) DVT (deep venous thrombosis) Current Visit: Yes Status: Acute Assessment and plan: As above Qualifiers: DVT location: lower extremity Affected thrombotic vein of extremity: popliteal Laterality: right Chronicity: acute Qualified Code(s): I82.431 - Acute embolism and thrombosis of right popliteal vein (3) Hypertension Current Visit: Yes Status: Chronic Assessment and plan: Controlled, continue home meds Qualifiers: Hypertension type: essential hypertension Qualified Code(s): I10 - Essential (primary) hypertension (4) COPD (chronic obstructive pulmonary disease) Current Visit: Yes Status: Chronic Assessment and plan: Not in excerbation Qualifiers: COPD type: unspecified COPD Qualified Code(s): J44.9 - Chronic obstructive pulmonary disease, unspecified (5) Obesity (BMI 35.0-39.9 without comorbidity) Current Visit: Yes Status: Chronic (6) Hypokalemia Current Visit: Yes Status: Acute Assessment and plan: Replaced, trend - Constitutional Vitals: Temp Pulse Resp BP Pulse Ox 97.9 F 56 18 118/73 96 06/05/16 07:49 06/05/16 07:49 06/05/16 08:06 06/05/16 07:49 06/05/16 08:06 General appearance: Present: A&O X 3, pleasant, no acute distress Internal Medicine: Result - Labs CBC & Chem 7: 06/05/16 04:59 06/05/16 04:59 Labs: Short CBC 06/05/16 Range/Units 04:59 WBC 5.4 (4.3-11.1) K/mcL Hgb 9.3 L (11.5-15.4) g/dL Hct 28.4 L (35.3-44.9) % Plt Count 233 (140-400) K/mcL Neutrophils # 2.0 (1.6-8.9) K/mcL BMP 06/05/16 04:59 Sodium 143 Potassium 3.1 L Chloride 109 Carbon Dioxide 25 BUN 10 Creatinine 0.80 Glucose 89 Calcium 9.1 Cardiac Enzymes 06/05/16 Range/Units 04:59 Troponin I 0.00 (0-0.03) ng/mL - ABG Interpretation ABG results: PT/INR, D-dimer PT 20.8 Seconds (9.4-12.1) H 06/05/16 04:59 Consult Discharge Plan - Plan Referrals: Lluvia Silver, CIRCUIT BOARD INSPECTOR [Primary Care Provider] - 06/11/16 1:00 pm
[2016-06-05] MEDS ORDERED: Acetaminophen 325 MG TABLET PO PRN (12:04)
[2016-06-05] MEDS: Famotidine 20 MG TABLET PO PRN ×2 (14:33→21:45)
--- NOTE | 2016-06-05 17:17 | Electrocardiograph Report ---
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
[2016-06-05] MEDS ORDERED: *HR* Enoxaparin 100 MG/ML SYRINGE SQ SCH (21:00)
[2016-06-06 04:51] LABS: Basophils # 0.1 K/mcL (0.0-0.2); Eosinophils # 0.1 K/mcL (0.0-0.6); Eosinophils % 2.7 %; Hematocrit 30.4 % (35.3-44.9); Hemoglobin 10.1 g/dL (11.5-15.4); Immature Granulocytes % 0.2 % (0-4); Lymphocytes # 2.6 K/mcL (0.6-4.6); Lymphocytes % 49.6 %; Mean Corpuscular HGB Conc 33.2 g/dL (31.6-35.5); Mean Corpuscular Hemoglobin 32.3 pg (28.0-33.3); Mean Corpuscular Volume 97.1 fL (83.0-100.0); Mean Platelet Volume 9.2 fL (9.4-12.4); Monocytes # 0.5 K/mcL (0.0-1.3); Monocytes % 8.8 %; Platelet Count 244 K/mcL (140-400); Red Blood Count 3.13 M/mcL (3.82-4.97); Red Cell Distribution Width 14.3 % (11.5-14.5); Segmented Neutrophils % 37.7 %
[2016-06-06 05:06] LABS: BUN/Creatinine Ratio 12 (6-26); Blood Urea Nitrogen 9 mg/dL (7-20); Calcium 9.3 mg/dL (8.6-10.8); Carbon Dioxide 25 mEq/L (19-29); Chloride 109 mEq/L (98-109); Glucose 85 mg/dL (70-99); Osmolality,Calculated 294 (280-300); Potassium 3.3 mEq/L (3.5-4.5); Sodium 143 mEq/L (136-145); eGFR For African Americans > 60 (> 60); eGFR For Non-African Americans > 60 (> 60)
[2016-06-06 05:41] LABS: INR 2.8; Prothrombin Time 31.1 Seconds (9.4-12.1)
[2016-06-06 05:43] LABS: Activated Partial Thrombo Time 50.6 Seconds (26.0-36.0)
[2016-06-06] MEDS: *HR* Enoxaparin 100 MG/ML SYRINGE SQ SCH (06:12)
[2016-06-06] MEDS: *HR* OxyCODONE Immed Rel 5 MG TABLET PO PRN ×2 (06:13→11:43)
[2016-06-06] MEDS: Lisinopril 20 MG TABLET PO SCH (09:42)
[2016-06-06] MEDS: Furosemide 20 MG TABLET PO SCH (09:42)
--- NOTE | 2016-06-06 10:06 | Internal Med Progress Note ---
Date of Encounter: 06/06/16 Time of Encounter: 10:05 - Assessment and plan (1) Pulmonary embolism Current Visit: Yes Status: Acute Qualifiers: Pulmonary embolism type: other Chronicity: acute Acute cor pulmonale presence: without acute cor pulmonale Qualified Code(s): I26.99 - Other pulmonary embolism without acute cor pulmonale (2) DVT (deep venous thrombosis) Current Visit: Yes Status: Acute Qualifiers: DVT location: lower extremity Affected thrombotic vein of extremity: popliteal Laterality: right Chronicity: acute Qualified Code(s): I82.431 - Acute embolism and thrombosis of right popliteal vein (3) Hypertension Current Visit: Yes Status: Chronic Qualifiers: Hypertension type: essential hypertension Qualified Code(s): I10 - Essential (primary) hypertension (4) COPD (chronic obstructive pulmonary disease) Current Visit: Yes Status: Chronic Qualifiers: COPD type: unspecified COPD Qualified Code(s): J44.9 - Chronic obstructive pulmonary disease, unspecified (5) Obesity (BMI 35.0-39.9 without comorbidity) Current Visit: Yes Status: Chronic (6) Hypokalemia Current Visit: Yes Status: Acute - Constitutional Vitals: Temp Pulse Resp BP Pulse Ox 98 F 58 16 154/86 96 06/06/16 06:48 06/06/16 06:48 06/06/16 06:48 06/06/16 06:48 06/06/16 06:48 General appearance: Present: A&O X 3, pleasant, no acute distress Internal Medicine: Result - Labs CBC & Chem 7: 06/06/16 04:02 06/06/16 04:02 Labs: Short CBC 06/06/16 Range/Units 04:02 WBC 5.2 (4.3-11.1) K/mcL Hgb 10.1 L (11.5-15.4) g/dL Hct 30.4 L (35.3-44.9) % Plt Count 244 (140-400) K/mcL Neutrophils # 2.0 (1.6-8.9) K/mcL BMP 06/06/16 04:02 Sodium 143 Potassium 3.3 L Chloride 109 Carbon Dioxide 25 BUN 9 Creatinine 0.78 Glucose 85 Calcium 9.3 - ABG Interpretation ABG results: PT/INR, D-dimer PT 31.1 Seconds (9.4-12.1) H 06/06/16 04:02 Consult Discharge Plan - Plan Referrals: Lluvia Silver CNP [Primary Care Provider] - 06/11/16 1:00 pm
[2016-06-06] MEDS: Budesonide/Formoterol 160/4.5 MDI IH SCH (10:22)
--- NOTE | 2016-06-06 11:17 | Discharge Summary ---
Date of Encounter: 06/06/16 Time of Encounter: 11:14 - Discharge Diagnosis (1) Pulmonary embolism Priority: Primary Status: Acute Qualifiers: Pulmonary embolism type: other Chronicity: acute Acute cor pulmonale presence: without acute cor pulmonale Qualified Code(s): I26.99 - Other pulmonary embolism without acute cor pulmonale (2) DVT (deep venous thrombosis) Priority: Primary Status: Acute Qualifiers: DVT location: lower extremity Affected thrombotic vein of extremity: popliteal Laterality: right Chronicity: acute Qualified Code(s): I82.431 - Acute embolism and thrombosis of right popliteal vein (3) Hypertension Priority: Secondary Status: Chronic Qualifiers: Hypertension type: essential hypertension Qualified Code(s): I10 - Essential (primary) hypertension (4) COPD (chronic obstructive pulmonary disease) Priority: Secondary Status: Chronic Qualifiers: COPD type: unspecified COPD Qualified Code(s): J44.9 - Chronic obstructive pulmonary disease, unspecified (5) Obesity (BMI 35.0-39.9 without comorbidity) Priority: Secondary Status: Chronic (6) Hypokalemia Priority: Primary Status: Acute - Discharge Medications Home Medications: Albuterol Sulfate [Albuterol Inhaler] 2 puff IH Q4HR PRN 05/06/16 [History] Aspirin Enteric Coated [Aspirin EC] 325 mg PO DAILY #21 tablet.dr 05/06/16 [Rx] Atenolol [Tenormin] 25 mg PO DAILY 05/06/16 [History] Budesonide/Formoterol 160/4.5 [Symbicort 160/4.5] 2 puff IH BIDR 05/06/16 [ History] Cholecalciferol (D-3) [Vitamin D] 5,000 unit PO DAILY 05/06/16 [History] Citalopram [CeleXA] 20 mg PO DAILY 05/06/16 [History] Furosemide [Lasix] 20 mg PO DAILY 05/06/16 [History] Lisinopril [Zestril] 20 mg PO DAILY 05/06/16 [History] OxyCODONE Immed Rel [Roxicodone 5 MG] 5 - 10 mg PO Q6HR PRN #40 tablet 05/06/16 [Rx] Psyllium Husk [Daily Fiber] 0.52 gm PO DAILY 05/06/16 [History] Ibuprofen [Motrin] 800 mg PO Q8HR #30 tablet 05/08/16 [Rx] Enoxaparin [Lovenox] 100 mg SQ Q12H 06/04/16 [History] Ranitidine HCl [Acid Accounting Clerk] 150 mg PO BID PRN 06/04/16 [History] Warfarin [Coumadin] 5 mg PO DAILY 06/04/16 [History] Allergies/Adverse Reactions: Allergies No Known Allergies Allergy (Verified 05/06/16 13:28) Date of admission: 06/06/16 10:05 Primary care physician: Lluvia Silver CNP Discharging clinician: Renato Curtis Anticipated date of discharge: 06/06/16 - Patient Status Disposition: Home, Self-Care Condition: Good Functional capacity at discharge: independent ambulation Overall status at discharge: patient is back to baseline - Discharge Instructions Follow Up With: Lluvia Silver CNP [Primary Care Provider] - 06/11/16 1:00 pm - Diet and Activity Activity: resume usual activities as tolerated Diet: low fat, low cholesterol, low salt diet Interval History: See below Hospital course: Ms. Duran is a 55 year old female admitted for management of PE She is s/p R knee replacement with a diagnosis of DVT just prior to her presentation with complains of shortness of breath and chest pain CT scan showed Bilateral PE with no evidence of right heart strain Work up revealed Troponin 0, BNP slightly elevated 465, patient is not hypoxic on room air, Evidence of DVT on Doppler USS, patient on Lovenox and Coumadin for one day at home prior to admission She was also on ASA 325mg daily (prior DVT prophylaxis post-op) which has been discontinued ECHO noted for LVEF 60-65%, Normal LV size, wall thickness and function, Normal RV structure and function, mild TR and moderate Pul HTN, no WMA Her INR toda is 2.8 Lovenox was discontinued Patient will be discharged on 2mg po daily of Coumadin She has an appointment with INR clinic 06/10/16, advised to keep She has 5mg scored coumadin pills at home, which will be cut into half for her prior to discharge She is educated about her diagnosis and management Encouraged to elevate RLE and reassured swelling will decrease with shady There was no indication for thrombolysis or thrombolectomy, patient was hemodynamically stable throughout admission without need for supplemental O2 Follow up with INR clinic, Follow up with PCP - Time Spent with Patient Total time spent providing and/or coordinating discharge services: Less than 30 minutes - Constitutional Vitals: Temp Pulse Resp BP Pulse Ox 98 F 58 16 154/86 96 06/06/16 06:48 06/06/16 06:48 06/06/16 06:48 06/06/16 06:48 06/06/16 06:48 General appearance: Present: A&O X 3, pleasant, no acute distress, obese - Head Head exam: Present: atraumatic, normocephalic - Eye Eye exam: Present: PERRL, conjuntiva pink, sclera anicteric Pupils: Present: PERRL - Neck Neck exam general surgery: Present: supple, trachea midline. Absent: lymphadenopathy - Respiratory Respiratory exam: Present: CTAB. Absent: accessory muscle use, rales, rhonchi, wheezes - Cardiovascular Cardiovascular exam: Present: RRR, +S1, +S2. Absent: diastolic murmur, gallop, rubs, systolic murmur - GI/Abdominal GI/Abdominal exam: Present: normal bowel sounds, soft, no peritoneal signs. Absent: distended, tenderness - Extremities Exam Extremities exam: Present: pedal edema (RLE swelling, 1+, pittin, R knee scar, wound is clean and not infectred, no erythema, no tenderness), warm, radial pulses palpable and symetrical. Absent: calf tenderness, cyanotic - Neurological Exam Neurological exam: Present: alert, CN II-XII intact, oriented X3, no focal deficits. Absent: pronater drift, facial droop, speech deficit - Skin Skin exam: Present: dry, intact
[2016-06-06 12:07] VITALS: BP 161/84
[2016-06-06] MEDS ORDERED: *HR* Warfarin 2.5 MG TABLET PO SCH (18:00)
== END 2016-06-06 12:22 | disposition home or self-care (01) | DRG 176 ==
LOC: EMEROO 16:03 → 2ANU 16:03
PROVIDERS: ADMIT Internal Medicine; ATTEND Internal Medicine